=== PATIENT | female | born 1950 | race Caucasian/White ===

== ENCOUNTER → 2024-04-18 16:46 | Outpatient (REF) | payer MEDICARE, OTHER, SELFPAY | LOC: RCS 16:46 | PROVIDERS: ATTENDING PHYSICIAN Family Medicine | DX: Z01.818 Encounter for other preprocedural examination (principal); R94.31 Abnormal electrocardiogram [ECG] [EKG] | CPT/HCPCS: 93306 ==

== ENCOUNTER → 2024-10-03 10:20 | Outpatient (REF) | payer MEDICARE, OTHER, SELFPAY | LOC: HWRAD 10:20 | PROVIDERS: ATTENDING PHYSICIAN Family Medicine; REFERRING PHYSICIAN Physical Medicine & Rehabilitation | DX: Z78.0 Asymptomatic menopausal state (principal) | CPT/HCPCS: 77080 ==